=== PATIENT | male | born 1985 | race Caucasian/White ===

== ENCOUNTER 2017-12-27 08:36 | Emergency (ER) | payer OTHER ==
[2017-12-27 08:49] VITALS: BP 135/82
--- NOTE | 2017-12-27 09:09 | ED ---
Skin Complaint - HPI Summary HPI Summary: Pt. is a 32 y.o male who presents to the ER for drainage and redness to umbilicus. Pt. notes he had mild pain to the area x 2-3 days and then noticed drainage from umbilicus. Is not a diabetic. He denies fever/chills, abd. pain, N /V. Symptoms are mild in severity. Touching affected area makes symptoms worse. Rest makes symptoms better. - History of Current Complaint Chief Complaint: EDRashSkinAbscess Time Seen by Provider: 12/27/17 08:50 Stated Complaint: ABNORMAL BLEEDING Hx Obtained From: Patient Pain Intensity: 2 - Allergy/Home Medications Allergies/Adverse Reactions: Allergies Allergy/AdvReac Type Severity Reaction Status Date / Time No Known Allergies Allergy Verified 12/27/17 08:43 PMH/Surg Hx/FS Hx/Imm Hx Previously Healthy: Yes Infectious Disease History: No Infectious Disease History: Denies: Traveled Outside the [place] in Last 30 Days Review of Systems Constitutional: Negative Negative: Fever, Chills Gastrointestinal: Negative Negative: Abdominal Pain, Vomiting, Nausea Positive: Other - Redness and drainage to abdomen. All Other Systems Reviewed And Are Negative: Yes Physical Exam Triage Information Reviewed: Yes Vital Signs On Initial Exam: Initial Vitals Temp Pulse Resp BP Pulse Ox 98.6 F 75 17 135/82 97 12/27/17 08:43 12/27/17 08:43 12/27/17 08:43 12/27/17 08:43 12/27/17 08:43 Vital Signs Reviewed: Yes Appearance: Positive: Well-Appearing - Pt. sitting on bed in NAD. Skin: Positive: Warm, Dry Head/Face: Positive: Normal Head/Face Inspection Eyes: Positive: Normal, RIANNA Neck: Positive: Supple Abdomen Description: Positive: Other: - Morbidly obese. Abdomen is soft nontender throughout. Noted from the umbilicus there is a bloody purulent discharge. Mild surrounding cellulitis noted to the skin. No induration or fluctuance. Diagnostics - Vital Signs Vital Signs Temp Pulse Resp BP Pulse Ox 12/27/17 08:43 98.6 F 75 17 135/82 97 - Laboratory Lab Statement: Any lab studies that have been ordered have been reviewed, and results considered in the medical decision making process. Course/Dx - Course Course Of Treatment: Pt. presenting for redness and drainage from umbilicus. He is afebrile and well appearing. I do not appreciate abscess or induration on exam. He has no deep abdominal pain on palpation. Will treat with keflex and bactrim (will cover for MRSA). Advised to schedule wound check with PCP in 2-3 days. To apply warm compress. To return to ER for fever, increased redness, swelling pain or if concerned. Pt. understands and agrees with plan. - Differential Diagnoses - Skin Complaint Differential Diagnoses: Abscess, Cellulitis - Diagnoses Provider Diagnoses: Wound infection, Cellulitis Discharge - Sign-Out/Discharge Documenting (check all that apply): Discharge/Admit/Transfer - Discharge Plan Condition: Good Disposition: HOME Prescriptions: Cephalexin CAP* [Keflex CAP*] 500 mg PO QID #40 cap Sulfamethox/Trimethoprim DS* [Bactrim DS 800/160 TAB*] 1 tab PO BID #20 tab Patient Education Materials: Wound Infection (ED), Cellulitis (ED) Referrals: Dereje Gilmore DO [Primary Care Provider] - Additional Instructions: Call your PCP today to schedule an appointment for wound check in 2-3 days Take antibiotics as directed Keep area clean and dry Return to ER for increased redness, swelling, drainage, fever, vomiting or if concerned - Billing Disposition and Condition Condition: GOOD Disposition: HOME
== END 2017-12-27 09:15 | disposition home or self-care (01) ==
LOC: ED 08:36
DX: L03.316 Cellulitis of umbilicus (principal)
CPT/HCPCS: 99282